=== PATIENT | male | born 1990 | race Caucasian/White ===

== ENCOUNTER 2020-08-25 01:00 | Emergency (ER) | payer OTHER ==
[2020-08-25] MEDS ORDERED: LOTRIMIN CREAM15 GM TP (01:42)
[2020-08-25] MEDS ORDERED: IBUPROFEN600 MG PO (01:42)
== END 2020-08-25 02:43 | disposition home or self-care (01) ==
LOC: ER1 01:00
DX: N47.6 Balanoposthitis (principal)
CPT/HCPCS: 99283

== ENCOUNTER 2020-08-31 02:39 | Emergency (ER) | payer OTHER ==
[~2020-08-31 02:39] MED LIST: IBUPROFEN600 MG PO; LOTRIMIN CREAM15 GM TP
[2020-08-31 03:22] LABS: HEMOGLOBIN 15.4 gm/dl (14.0-17.5); RED BLOOD COUNT 5.21 M/UL (4.20-5.50); WHITE BLOOD COUNT 9.6 K/UL (4.5-11.0)
[2020-08-31 03:38] LABS: BUN/CREATININE RATIO 22 (0-10)
== END 2020-08-31 05:00 | disposition home or self-care (01) ==
LOC: ER1 02:39
PROVIDERS: Physician Assistant Medical
DX: N47.1 Phimosis (principal); B37.9 Candidiasis, unspecified
CPT/HCPCS: 80053; 81001; 85025; 87086; 99284

== ENCOUNTER 2020-12-07 15:55 | Inpatient (IN) | payer MEDICAID ==
[~2020-12-07] VITALS: Ht 185.4 cm; Wt 136.1 kg
[2020-12-07 16:42] LABS: HEMOGLOBIN 15.8 gm/dl (14.0-17.5); RED BLOOD COUNT 5.27 M/UL (4.20-5.50); WHITE BLOOD COUNT 9.9 K/UL (4.5-11.0)
[2020-12-07 17:16] LABS: BUN/CREATININE RATIO 6 (0-10)
[2020-12-08 06:40] LABS: HEMOGLOBIN 14.5 gm/dl (14.0-17.5); WHITE BLOOD COUNT 9.6 K/UL (4.5-11.0)
[2020-12-08 07:32] LABS: BUN/CREATININE RATIO 9 (0-10)
[2020-12-09 07:12] LABS: HEMOGLOBIN 15.1 gm/dl (14.0-17.5); RED BLOOD COUNT 5.16 M/UL (4.20-5.50); WHITE BLOOD COUNT 8.3 K/UL (4.5-11.0)
[2020-12-09 07:34] LABS: BUN/CREATININE RATIO 12 (0-10)
[2020-12-10 06:07] LABS: HEMOGLOBIN 14.9 gm/dl (14.0-17.5); RED BLOOD COUNT 5.11 M/UL (4.20-5.50); WHITE BLOOD COUNT 8.5 K/UL (4.5-11.0)
[2020-12-10 06:24] LABS: BUN/CREATININE RATIO 15 (0-10)
[2020-12-10] MEDS ORDERED: CLINDAMYCIN HC300 MG PO (14:21)
[2020-12-10] MEDS ORDERED: METFORMIN HCL1000 MG PO (14:21)
== END 2020-12-10 15:05 | disposition home or self-care (01) | DRG 603 ==
LOC: ER1 15:55 → MED SURG 4 18:13 → CDU 18:13 → MED SURG 4 20:53
PROVIDERS: Nurse Practitioner; ADMIT Internal Medicine
DX: L03.211 Cellulitis of face (principal); R74.01 Elevation of levels of liver transaminase levels; E11.9 Type 2 diabetes mellitus without complications; J98.2 Interstitial emphysema; Z20.822 Contact with and (suspected) exposure to COVID-19; E66.9 Obesity, unspecified; Z79.899 Other long term (current) drug therapy; Z79.84 Long term (current) use of oral hypoglycemic drugs; Z79.4 Long term (current) use of insulin; Z68.39 Body mass index [BMI] 39.0-39.9, adult
CPT/HCPCS: 36415; 70487; 80048; 80053; 80202; 82962; 83036; 83735; 85025; 85027; 87040; 96374; 99284; J1650; J2543; J3370; J7030; J7040; J7070; Q9967; U0002